=== PATIENT | female | born 1970 | race Caucasian/White ===

== ENCOUNTER 2021-04-28 08:51 | Emergency (ER) | payer SELFPAY ==
[~2021-04-28] VITALS: Ht 162.6 cm; Wt 68.0 kg
[~2021-04-28 08:51] MED LIST: (None)15 G1 EXT; ACET325 PO; ALBU90I INH; ALBU90OI INH; ALBU90OI6 INH; ALBU90OI61 INH; AMOX500 PO; AZIT250 PO; BENZ100A PO; Bactrim Ds Tab1 EACH PO; CLOB.05TC TOP; CLOB.05TO TOP; CYCL10 PO; DOXY100 PO; ERYT500 PO; HYDACE10B PO; HYDACE7.5 PO; HYDGUAL120 PO; HYDRA25 PO; Hydroxyzine HCl50 MG PO; META800 PO; METF500C; NAPR500 PO; NAPR500EC PO; NAPROSYN PRN; NORETHTP; PENVK250 PO; PENVK500 PO; PRED10 PO; PRED20 PO; Prednisone10 MG PO; Prednisone20 MG PO; Prednisone50 MG PO; RXCYCL10 PO; RXHYDACE PO; RXHYDGUAS PO; RXTRAM50 PO; SULTRIDS PO; TRAM50 PO; TRIA80TC TOP; TYLENOL PRN; Triamcinolone A15 GM TOP; Vistaril25 MG PO; [UNRECOGNIZED DRUG - REMARK]
[2021-04-28] MEDS ORDERED: PRED20 PO (09:23)
[2021-04-28] MEDS ORDERED: TRIDERM28.4 GM TOP (09:23)
[2021-04-28] MEDS ORDERED: Bactrim Ds Tab1 EACH PO (09:23)
== END 2021-04-28 09:40 | disposition home or self-care (01) ==
LOC: ER 08:51
DX: L25.9 Unspecified contact dermatitis, unspecified cause (principal); J45.909 Unspecified asthma, uncomplicated; F17.200 Nicotine dependence, unspecified, uncomplicated; Z88.1 Allergy status to other antibiotic agents; Z88.8 Allergy status to other drugs, medicaments and biological substances; Z79.899 Other long term (current) drug therapy; Z79.84 Long term (current) use of oral hypoglycemic drugs
CPT/HCPCS: 99282

== ENCOUNTER 2022-02-14 13:30 | Emergency (ER) | payer SELFPAY ==
[~2022-02-14] VITALS: Ht 162.6 cm; Wt 74.8 kg
[~2022-02-14 13:30] MED LIST changes: +TRIDERM28.4 GM TOP
[2022-02-14 13:58] LABS: BASOPHILS ABSOLUTE AUTO 0.07 K/mm3 (0.00-0.23); BASOPHILS PERCENT AUTO 1 % (0-2); EOSINOPHILS ABSOLUTE AUTO 0.21 K/mm3 (0.00-0.68); EOSINOPHILS PERCENT AUTO 2 % (0-6); Hematocrit 41.5 % (33.0-51.0); Hemoglobin 13.2 g/dL (11.5-16.0); IMMATURE GRAN ABSOLUTE AUTO 0.02 K/mm3 (0.00-0.10); IMMATURE GRAN PERCENT AUTO 0 % (0-1); LYMPHOCYTES PERCENT AUTO 25 % (21-46); MONOCYTES ABSOLUTE AUTO 0.65 K/mm3 (0.16-1.47); MONOCYTES PERCENT AUTO 7 % (4-13); Mean Corpuscular HGB 23.9 pg (26.0-34.0); Mean Corpuscular HGB Conc 31.8 g/dL (31.5-36.5); Mean Corpuscular Volume 75 fL (80-100); Mean Platelet Volume 10.3 fL (9.1-12.4); NEUTROPHILS ABSOLUTE AUTO 6.31 K/mm3 (1.96-9.15); NEUTROPHILS PERCENT AUTO 65 % (41-73); Platelet Count 474 K/mm3 (150-400); RDW Coefficient Variation 15.8 % (11.7-14.2); RDW Standard Deviation 42.6 fL (35.1-46.3); Red Blood Cell Count 5.52 M/mm3 (3.80-5.20); White Blood Cell Count 9.66 K/mm3 (4.00-11.30)
[2022-02-14 14:18] LABS: Albumin, Blood 3.4 g/dL (3.4-5.0); Albumin/Globulin Ratio 0.8 (0.8-1.8); Bilirubin, Total 0.3 mg/dL (0.1-1.0); Bun/Creatinine Ratio 15.5 (12.0-20.0); Calcium, Blood 9.2 mg/dL (8.5-10.1); Creatinine, Blood 0.45 mg/dL (0.40-1.00); Globulin, Blood 4.4 g/dL (2.2-4.0); Potassium, Blood 4.2 mmol/L (3.5-5.5); Total Protein, Blood 7.8 g/dL (6.4-8.2)
[2022-02-14] MEDS ORDERED: AMOCLA875 PO (15:40)
== END 2022-02-14 15:43 | disposition home or self-care (01) ==
LOC: ER 13:30
PROVIDERS: Physician Assistant
DX: S91.052A Open bite, left ankle, initial encounter (principal); E11.9 Type 2 diabetes mellitus without complications; F17.200 Nicotine dependence, unspecified, uncomplicated; W55.01XA Bitten by cat, initial encounter; Z88.8 Allergy status to other drugs, medicaments and biological substances; Z79.52 Long term (current) use of systemic steroids; Z79.899 Other long term (current) drug therapy; Z79.84 Long term (current) use of oral hypoglycemic drugs
CPT/HCPCS: 36415; 80053; 85025; 90714; A9270

== ENCOUNTER 2023-04-17 09:13 | Emergency (ER) | payer OTHER ==
[~2023-04-17] VITALS: Ht 162.6 cm; Wt 74.8 kg
[~2023-04-17 09:13] MED LIST changes: +AMOCLA875 PO
[2023-04-17 10:59] LABS: Influenza A, PCR NEGATIVE (NEGATIVE); Influenza B, PCR NEGATIVE (NEGATIVE); Resp Syncytial Virus, PCR NEGATIVE (NEGATIVE); SARS-Cov-2 (COVID-19) PCR, MMC NEGATIVE (NEGATIVE)
[2023-04-17] MEDS ORDERED: Prednisone20 MG PO (11:30)
[2023-04-17] MEDS ORDERED: Zithromax250 MG PO (11:30)
[2023-04-17] MEDS ORDERED: ALBU90OI INH (11:30)
[2023-04-17 11:42] VITALS: BP 132/84
== END 2023-04-17 11:40 | disposition home or self-care (01) ==
LOC: ER 09:13
PROVIDERS: Emergency Medicine
DX: J44.1 Chronic obstructive pulmonary disease with (acute) exacerbation (principal); B34.9 Viral infection, unspecified; Z20.822 Contact with and (suspected) exposure to COVID-19; J45.909 Unspecified asthma, uncomplicated; E11.9 Type 2 diabetes mellitus without complications; Z88.8 Allergy status to other drugs, medicaments and biological substances; Z88.1 Allergy status to other antibiotic agents; Z79.899 Other long term (current) drug therapy; Z79.84 Long term (current) use of oral hypoglycemic drugs; F17.200 Nicotine dependence, unspecified, uncomplicated
CPT/HCPCS: 0241U; 71045; 93005; 93010; 99284-25

== ENCOUNTER 2023-06-03 15:23 | Emergency (ER) | payer OTHER ==
[~2023-06-03] VITALS: Ht 162.6 cm; Wt 72.6 kg
[~2023-06-03 15:23] MED LIST changes: +Zithromax250 MG PO
[2023-06-03 15:30] VITALS: BP 150/103
[2023-06-03] MEDS ORDERED: AMOCLA875 PO (17:14)
[2023-06-03] MEDS ORDERED: Prednisone20 MG PO (21:25)
== END 2023-06-03 17:29 | disposition home or self-care (01) ==
LOC: ER 15:23
DX: L03.211 Cellulitis of face (principal); J45.909 Unspecified asthma, uncomplicated; E11.9 Type 2 diabetes mellitus without complications; Z79.52 Long term (current) use of systemic steroids; Z79.2 Long term (current) use of antibiotics; Z79.899 Other long term (current) drug therapy; Z88.1 Allergy status to other antibiotic agents; Z88.4 Allergy status to anesthetic agent; F17.200 Nicotine dependence, unspecified, uncomplicated
CPT/HCPCS: 99282; A9270

== ENCOUNTER 2023-10-25 01:09 | Emergency (ER) | payer OTHER ==
[~2023-10-25] VITALS: Ht 160 cm; Wt 72.6 kg
[2023-10-25 01:22] VITALS: BP 151/98
== END 2023-10-25 03:32 | disposition home or self-care (01) ==
LOC: ER 01:09
DX: L03.113 Cellulitis of right upper limb (principal); L20.89 Other atopic dermatitis; J45.909 Unspecified asthma, uncomplicated; E11.9 Type 2 diabetes mellitus without complications; F17.200 Nicotine dependence, unspecified, uncomplicated; Z88.1 Allergy status to other antibiotic agents; Z88.8 Allergy status to other drugs, medicaments and biological substances